=== PATIENT | male | born 1980 | race American Indian/Alaskan Native ===

== ENCOUNTER 2021-09-19 10:26 | Emergency (ER) | payer SELFPAY | END 2021-09-19 11:12 | disposition left against medical advice (07) | LOC: ED 10:26 | DX: R10.9 Unspecified abdominal pain (principal); Z53.21 Procedure and treatment not carried out due to patient leaving prior to being seen by health care provider ==

== ENCOUNTER 2021-10-06 12:41 | Emergency (ER) | payer MEDICARE ==
--- NOTE | 2021-10-06 14:29 | Emergency Department Report ---
<JERRI MONROE - Last Filed: 10/06/21 17:33> ED General Adult HPI - General Chief complaint: Nausea/Vomiting/Diarrhea Stated complaint: SPITTING UP BLOOD/3 MTS Time Seen by Provider: 10/06/21 13:53 Source: patient, family Mode of arrival: Ambulatory Limitations: No Limitations - History of Present Illness Initial comments: 41-year-old female with of developmental delay was brought to ED by family member with complaints of spitting up blood. Patient states that she is currently about 3 months . She reports that her last MC was in june and she did have a confirmed with the viable IUP done at [facility] on September 26. Patient states that she has been having issues with nausea and vomiting since being , but she was prescribed medications from [facility] which she has been taking. She states that she has remained nauseous and she has been doing a lot of spitting, but she has also been coughing since Friday and yesterday and today noticed that she was spitting up bright red blood. She was unable to tell if the blood was mixed with sputum. She denies vomiting blood. She denies any wheezing, chest pain, or SOB but she does admit to intermittent sore throat. She also c/o left sided intermittent sharp pain since last week but she reports no abnl vag bleeding, d/c or UTI symptoms. She denies fever or chills. She denies any apparent ill contacts. She has been vaccinated against COVID. She denies any recent travel. She reports no lower extremity swelling or calf pain. She reports a remote history of breast cancer back in for 5 years ago but she is currently in remission. She denies any history of PE or DVT. She is not on any anticoagulants or antiplatelet therapy. Her first OBGYN appt with Dr Blunt is October 15. She is . She denies any hx of illicit drug use or ETOH abuse. Complaint: SPITTING UP BLOOD/3 MTS -: days(s) - Related Data Previous Rx's Medication Instructions Recorded Last Taken Type Doxylamine Succinate/Vit B6 1 each PO QHS #30 10/06/21 Unknown Rx [Diclegis Dr 10-10 mg Tablet] Potassium Chloride [K-Dur] 20 meq PO BID #6 tab 10/06/21 Unknown Rx Allergies Allergy/AdvReac Type Severity Reaction Status Date / Time metoclopramide [From Reglan] Allergy Vomiting Verified 10/06/21 13:11 ED Review of Systems Comment: All other systems reviewed and negative Constitutional: denies: chills, fever Eyes: denies: eye pain, eye discharge, vision change ENT: throat pain. denies: ear pain, dental pain, hearing loss, epistaxis, congestion Respiratory: cough. denies: orthopnea, shortness of breath, SOB with exertion, SOB at rest, wheezing Cardiovascular: denies: chest pain, palpitations, dyspnea on exertion, edema, syncope, paroxysmal nocturnal dyspnea Gastrointestinal: abdominal pain, nausea. denies: vomiting, diarrhea, constipation, hematemesis, melena, hematochezia Musculoskeletal: denies: back pain, joint swelling, arthralgia Skin: denies: rash, lesions, change in color, change in hair/nails, pruritus Neurological: denies: headache, weakness, numbness, paresthesias, confusion, abnormal gait, vertigo Psychiatric: denies: anxiety, depression, auditory hallucinations, visual small llucinations, homicidal thoughts, suicidal thoughts Hematological/Lymphatic: denies: easy bleeding, swollen glands ED Past Medical Hx - Past Medical History Additional medical history: BREAST CA- REMISSION - Surgical History Past Surgical History?: No - Medications Home Medications: Home Medications Medication Instructions Recorded Confirmed Last Taken Type Doxylamine Succinate/Vit B6 1 each PO QHS #30 10/06/21 Unknown Rx [Diclegis Dr 10-10 mg Tablet] Potassium Chloride [K-Dur] 20 meq PO BID #6 tab 10/06/21 Unknown Rx ED Physical Exam - General Limitations: No Limitations General appearance: alert, in no apparent distress - Head Head exam: Present: atraumatic, normocephalic, normal inspection - Eye Eye exam: Present: normal appearance, PERRL, EOMI Pupils: Present: normal accommodation - ENT ENT exam: Present: mucous membranes moist - Expanded ENT Exam Expanded Mouth exam: Present: normal external inspection Teeth exam: Present: normal inspection Throat exam: Positive: tonsillar erythema. Negative: tonsillomegaly, tonsillar exudate, R peritonsillar mass, L peritonsillar mass - Neck Neck exam: Present: normal inspection, full ROM. Absent: meningismus - Respiratory Respiratory exam: Present: normal lung sounds bilaterally. Absent: respiratory distress, wheezes, rales, rhonchi - Cardiovascular Cardiovascular Exam: Present: regular rate, normal rhythm, normal heart sounds - GI/Abdominal GI/Abdominal exam: Present: soft, tenderness (mild LUQ and LLQ abd ttp ). Absent: distended, guarding - Rectal Rectal exam: Present: normal inspection, normal rectal tone, heme (-) stool, other (Aunt present in Room at time of rectal exam ). Absent: black stool, bloody stool, fecal impaction, hemorrhoids, mass, tenderness - Extremities Exam Extremities exam: Present: normal inspection, full ROM. Absent: pedal edema, c sid tenderness - Neurological Exam Neurological exam: Present: alert, oriented X3, CN II-XII intact, normal gait - Psychiatric Psychiatric exam: Present: normal affect, normal mood - Skin Skin exam: Present: intact ED Medical Decision Making - Lab Data Result diagrams: 10/06/21 15:35 10/06/21 15:35 - Radiology Data Radiology results: report reviewed Patient: MILI HERCULES MR#: [id number] : 1980 Acct:[id number] Age/Sex: 41 / F ADM Date: 10/06/21 Loc: ED Attending Dr: Ordering Physician: JERRI MONROE Date of Service: 10/06/21 Procedure(s): XR chest 1V ap Accession Number(s): [id number] cc: JERRI MONROE Fluoro Time In Minutes: CHEST 1 VIEW 10/06/2021 2:12 PM INDICATION / CLINICAL INFORMATION: hemoptysis. COMPARISON: None available. FINDINGS: SUPPORT DEVICES: None. HEART / MEDIASTINUM: No significant abnormality. LUNGS / PLEURA: No significant pulmonary or pleural abnormality. No pneumothorax. ADDITIONAL FINDINGS: No significant additional findings. IMPRESSION: 1. No acute findings. Signer Name: Eben Pelayo MD Signed: 10/06/2021 3:26 PM Workstation Name: [id number] Transcribed By: DT Dictated By: Leonard Pelayo MD Electronically Authenticated By: Leonard Pelayo MD Signed Date/Time: 10/06/21 1526 DD/ 1525 TD/TT: Patient: MILI HERCULES MR#: [id number] : 1980 Acct:[id number] Age/Sex: 41 / F ADM Date: 10/06/21 Loc: ED Attending Dr: Ordering Physician: JERRI MONROE Date of Service: 10/06/21 Procedure(s): US OB limited Accession Number(s): [id number] cc: JERRI MONROE ULTRASOUND OBSTETRIC INDICATION / CLINICAL INFORMATION: 3 mths preg; left sided abd pain. - Clinical Gestational Age (GA) in weeks, days: LMP is unknown TECHNIQUE: Transabdominal. COMPARISON: None available. FINDINGS: GESTATIONAL SAC: Well-defined oval shape and intrauterine in location. YOLK SAC: No significant abnormality. EMBRYO/FETUS: No significant abnormality. - [place]-Rump Length = 3.1 cm = 10, 0 weeks, days - Heart Rate, beats per minute (if present) = 176 ADNEXA: Right ovary well visualized. No adnexal mass or cyst. FREE FLUID: None. ADDITIONAL FINDINGS: None. IMPRESSION: 1. Single, living intrauterine with estimated sonographic age of 10, 0 weeks, days. Signer Name: Eben Pelayo MD Signed: 10/06/2021 5:18 PM Workstation Name: [id number] Transcribed By: DT Dictated By: Leonard Pelayo MD Electronically Authenticated By: Leonard Pelayo MD Signed Date/Time: 10/06/211717 DD/ 15 TD/TT: - Medical Decision Making 1732 ; The patient's care has been transferred to and accepted by[Dr Washburn]. We discussed: The patient's chief complaints; labs and imaging that have been completed and those that are still pending; procedures that have been completed; any treatment provided and the patient's response to treatment; any significant change in condition; the treatment plan prior to the transfer of care. The accepting provider will follow up on all pending labs and imaging and make any necessary changes to the current impression and/or treatment plan. The accepting physician/midlevel is now responsible for the patient's care and final disposition. ED Disposition Clinical Impression: Dehydration, Nausea/vomiting in , Bronchitis Disposition: 01 HOME / SELF CARE / HOMELESS Is pt being admited?: No Does the pt Need Aspirin: No Condition: Stable Instructions: Hyperemesis Gravidarum, Hypokalemia, Dehydration, Adult, Easy-to- Read, Acute Bronchitis, Adult, Chronic Bronchitis (ED) Additional Instructions: I recommend that you try to drink lots of fluids most importantly water, or even electrolyte water to help with hydration. Take the Diclegis as prescribed and at night to help with nausea and vomiting. It can make you sleepy so make sure you take it at night. Recommend that you try to include catracho products in your diet as this will also help with nausea and vomiting. Potassium was mildly decreased today at 3.2 and so you will be given 3-day supply of oral potassium, but you can eat foods such as avocado, watermelon, and bananas to help increase your potassium level. You can suck on [id number] lozenges to help control your cough. I do recommend also getting a COVID-19 test at an outpatient clinic or urgent care to rule this out as a cause of your cough. Take Tylenol only as needed for pain. Recommend that you start vitamins from hypx-dps-opxesif. You can do the vitamin Gummies which will be easier to tolerate currently. Most importantly follow-up with the AQUATICS DIRECTOR as scheduled October 15. Return to the ER if your symptoms worsens or changes in any way. Prescriptions: Doxylamine Succinate/Vit B6 [Diclegis Dr 10-10 mg Tablet] 1 each PO QHS #30 Potassium Chloride [K-Dur] 20 meq PO BID #6 tab Referrals: PRIMARY CAREMD [Referring] - 3-5 Days Forms: Work/School Release Form(ED) Time of Disposition: 17:31 <CEFERINO WASHBURN - Last Filed: 10/06/21 19:12> ED Review of Systems ROS: Stated complaint: SPITTING UP BLOOD/3 MTS Other details as noted in HPI ED Course Vital Signs 10/06/21 13:16 Temperature 98.2 F Pulse Rate 84 Respiratory 20 Rate Blood Pressure 120/58 O2 Sat by Pulse 100 Oximetry - Reevaluation(s) Reevaluation #1: 10/06/21 19:11 Patient reevaluated multiple times by myself. No active vomiting. X-ray of the chest and obstetrics ultrasound reviewed and appreciated. Urinalysis is grossly contaminated with epithelial cells. Patient did not endorse any irritative or obstructive urinary symptoms to myself with the physician reference library assistant. Discharged with outpatient follow-up. ED Medical Decision Making - Lab Data Result diagrams: 10/06/21 15:35 10/06/21 15:35 Vital Signs 10/06/21 13:16 Temperature 98.2 F Pulse Rate 84 Respiratory 20 Rate Blood Pressure 120/58 O2 Sat by Pulse 100 Oximetry Lab Results 10/06/21 10/06/21 10/06/21 Range/Units 15:35 15:35 15:35 WBC 4.9 (4.5-11.0) K/mm3 RBC 4.43 (3.65-5.03) M/mm3 Hgb 13.2 (10.1-14.3) gm/dl Hct 39.8 (30.3-42.9) % MCV 90 (79-97) fl MCH 30 (28-32) pg MCHC 33 (30-34) % RDW 12.3 L (13.2-15.2) % Plt Count 350 (140-440) K/mm3 Lymph % (Auto) 29.6 (13.4-35.0) % [place] % (Auto) 15.8 H (0.0-7.3) % Eos % (Auto) 0.2 (0.0-4.3) % Baso % (Auto) 0.7 (0.0-1.8) % Lymph # (Auto) 1.4 (1.2-5.4) K/mm3 [place] # (Auto) 0.8 (0.0-0.8) K/mm3 Eos # (Auto) 0.0 (0.0-0.4) K/mm3 Baso # (Auto) 0.0 (0.0-0.1) K/mm3 Seg Neutrophils % 53.7 (40.0-70.0) % Seg Neutrophils # 2.6 (1.8-7.7) K/mm3 Sodium 129 L (137-145) mmol/L Potassium 3.2 L (3.6-5.0) mmol/L Chloride 92.7 L (98-107) mmol/L Carbon Dioxide 20 L (22-30) mmol/L Anion Gap 20 mmol/L BUN 23 H (7-17) mg/dL Creatinine 0.6 (0.6-1.2) mg/dL Estimated GFR > 60 ml/min BUN/Creatinine Ratio 38 % Glucose 81 (65-100) mg/dL Calcium 10.3 H (8.4-10.2) mg/dL Magnesium (1.7-2.3) mg/dL Total Bilirubin 0.60 (0.1-1.2) mg/dL AST 23 (5-40) units/L ALT 20 (7-56) units/L Alkaline Phosphatase 69 (35-129) units/L Total Protein 8.1 (6.3-8.2) g/dL Albumin 4.3 (3.9-5) g/dL Albumin/Globulin Ratio 1.1 % Lipase (13-60) units/L HCG, Quant 720351 H (0-4) mIU/mL Urine Color (Yellow) Urine Turbidity (Clear) Urine pH (5.0-7.0) Ur Specific [place] (1.003-1.030) Urine Protein (Negative) mg/dL Urine Glucose (UA) (Negative) mg/dL Urine Ketones (Negative) mg/dL Urine Blood (Negative) Urine Nitrite (Negative) Urine Bilirubin (Negative) Urine Urobilinogen (<2.0) mg/dL Ur Leukocyte Esterase (Negative) Urine WBC (Auto) (0.0-6.0) /HPF Urine RBC (Auto) (0.0-6.0) /HPF U Epithel Cells (Auto) (0-13.0) /HPF Urine Bacteria (Auto) (Negative) /HPF Urine WBC Clumps /HPF Urine Mucus /HPF Urine Yeast (Budding) /HPF Group A Strep Rapid (Negative) 10/06/21 10/06/21 10/06/21 Range/Units 15:35 15:35 18:11 WBC (4.5-11.0) K/mm3 RBC (3.65-5.03) M/mm3 Hgb (10.1-14.3) gm/dl Hct (30.3-42.9) % MCV (79-97) fl MCH (28-32) pg MCHC (30-34) % RDW (13.2-15.2) % Plt Count (140-440) K/mm3 Lymph % (Auto) (13.4-35.0) % [place] % (Auto) (0.0-7.3) % Eos % (Auto) (0.0-4.3) % Baso % (Auto) (0.0-1.8) % Lymph # (Auto) (1.2-5.4) K/mm3 [place] # (Auto) (0.0-0.8) K/mm3 Eos # (Auto) (0.0-0.4) K/mm3 Baso # (Auto) (0.0-0.1) K/mm3 Seg Neutrophils % (40.0-70.0) % Seg Neutrophils # (1.8-7.7) K/mm3 Sodium (137-145) mmol/L Potassium (3.6-5.0) mmol/L Chloride (98-107) mmol/L Carbon Dioxide (22-30) mmol/L Anion Gap mmol/L BUN (7-17) mg/dL Creatinine (0.6-1.2) mg/dL Estimated GFR ml/min BUN/Creatinine Ratio % Glucose (65-100) mg/dL Calcium (8.4-10.2) mg/dL Magnesium 1.90 (1.7-2.3) mg/dL Total Bilirubin (0.1-1.2) mg/dL AST (5-40) units/L ALT (7-56) units/L Alkaline Phosphatase (35-129) units/L Total Protein (6.3-8.2) g/dL Albumin (3.9-5) g/dL Albumin/Globulin Ratio % Lipase 15 (13-60) units/L HCG, Quant (0-4) mIU/mL Urine Color Priscila (Yellow) Urine Turbidity Cloudy (Clear) Urine pH 5.0 (5.0-7.0) Ur Specific [place] 1.027 (1.003-1.030) Urine Protein 100 mg/dl (Negative) mg/dL Urine Glucose (UA) Neg (Negative) mg/dL Urine Ketones 80 (Negative) mg/dL Urine Blood Neg (Negative) Urine Nitrite Neg (Negative) Urine Bilirubin Neg (Negative) Urine Urobilinogen 4.0 (<2.0) mg/dL Ur Leukocyte Esterase Lg (Negative) Urine WBC (Auto) 47.0 H (0.0-6.0) /HPF Urine RBC (Auto) 3.0 (0.0-6.0) /HPF U Epithel Cells (Auto) 55.0 H (0-13.0) /HPF Urine Bacteria (Auto) 2+ (Negative) /HPF Urine WBC Clumps 2+ /HPF Urine Mucus 3+ /HPF Urine Yeast (Budding) 1+ /HPF Group A Strep Rapid (Negative) 10/06/21 Range/Units Unknown WBC (4.5-11.0) K/mm3 RBC (3.65-5.03) M/mm3 Hgb (10.1-14.3) gm/dl Hct (30.3-42.9) % MCV (79-97) fl MCH (28-32) pg MCHC (30-34) % RDW (13.2-15.2) % Plt Count (140-440) K/mm3 Lymph % (Auto) (13.4-35.0) % [place] % (Auto) (0.0-7.3) % Eos % (Auto) (0.0-4.3) % Baso % (Auto) (0.0-1.8) % Lymph # (Auto) (1.2-5.4) K/mm3 [place] # (Auto) (0.0-0.8) K/mm3 Eos # (Auto) (0.0-0.4) K/mm3 Baso # (Auto) (0.0-0.1) K/mm3 Seg Neutrophils % (40.0-70.0) % Seg Neutrophils # (1.8-7.7) K/mm3 Sodium (137-145) mmol/L Potassium (3.6-5.0) mmol/L Chloride (98-107) mmol/L Carbon Dioxide (22-30) mmol/L Anion Gap mmol/L BUN (7-17) mg/dL Creatinine (0.6-1.2) mg/dL Estimated GFR ml/min BUN/Creatinine Ratio % Glucose (65-100) mg/dL Calcium (8.4-10.2) mg/dL Magnesium (1.7-2.3) mg/dL Total Bilirubin (0.1-1.2) mg/dL AST (5-40) units/L ALT (7-56) units/L Alkaline Phosphatase (35-129) units/L Total Protein (6.3-8.2) g/dL Albumin (3.9-5) g/dL Albumin/Globulin Ratio % Lipase (13-60) units/L HCG, Quant (0-4) mIU/mL Urine Color (Yellow) Urine Turbidity (Clear) Urine pH (5.0-7.0) Ur Specific [place] (1.003-1.030) Urine Protein (Negative) mg/dL Urine Glucose (UA) (Negative) mg/dL Urine Ketones (Negative) mg/dL Urine Blood (Negative) Urine Nitrite (Negative) Urine Bilirubin (Negative) Urine Urobilinogen (<2.0) mg/dL Ur Leukocyte Esterase (Negative) Urine WBC (Auto) (0.0-6.0) /HPF Urine RBC (Auto) (0.0-6.0) /HPF U Epithel Cells (Auto) (0-13.0) /HPF Urine Bacteria (Auto) (Negative) /HPF Urine WBC Clumps /HPF Urine Mucus /HPF Urine Yeast (Budding) /HPF Group A Strep Rapid Negative (Negative) - Radiology Data Radiology results: report reviewed, image reviewed Critical care attestation.: If time is entered above; I have spent that time in minutes in the direct care of this critically ill patient, excluding procedure time. ED Disposition Is pt being admited?: No Does the pt Need Aspirin: No
[2021-10-06] MEDS ORDERED: ONDANSETRON 4 MG/2 ML INJ IV ONE ×2 (14:37→15:00)
[2021-10-06] MEDS ORDERED: SODIUM CHLORIDE 0.9% 1000 ML 1,000 ML IV ONE (14:37)
--- NOTE | 2021-10-06 15:30 | XRay Report ---
CHEST 1 VIEW 10/06/2021 2:12 PM INDICATION / CLINICAL INFORMATION: hemoptysis. COMPARISON: None available. FINDINGS: SUPPORT DEVICES: None. HEART / MEDIASTINUM: No significant abnormality. LUNGS / PLEURA: No significant pulmonary or pleural abnormality. No pneumothorax. ADDITIONAL FINDINGS: No significant additional findings. IMPRESSION: 1. No acute findings. Signer Name: Eben Pelayo MD Signed: 10/06/2021 3:26 PM Workstation Name: [id number]
--- NOTE | 2021-10-06 15:57 | Event Note ---
Date of service: 10/06/21 Face to Face: For this encounter I have reviewed the PA/LABORER CEMENT GUN [employer]ACING documentation, treatment plan, medical decision making, and I had face to face time with this patient. Patient is a 41-year-old female who is developmentally delayed, whose mother serves as her decision-maker. She is , and may be following up with Dr. Barraza of VIDEO PRESENTATION OPERATOR, and COVID-19 vaccinated. She is accompanied by her aunt who provides some of the history of present illness. Patient presents to the ER today with a complaint of coughing up blood or vomiting of blood. This is not witnessed. The patient endorses lower abdominal cramping without urinary symptoms. In the emergency room, her throat exam is unremarkable, head and neck exam is unremarkable, and she is not in any acute respiratory distress. Laboratory studies show appropriate hemoglobin and hematocrit. She does have evidence of dehydration, manifest by probable hypovolemic hyponatremia. Potassium may be repleted orally. Magnesium levels pending. Urinalysis is pending. Obstetrics ultrasound is pending. Chest x-ray is clear. The patient is not currently tachycardic, tachypneic or hypoxic, she is not actively vomiting or experiencing hemoptysis, do not suspect a pulmonary embolism at this time. Physician assistant counsel to perform rectal examination to assess for lower GI bleed. Presuming no evidence of lower GI bleed, and unremarkable ultrasound,/urinalysis, we would consider this patient suitable for discharge as an outpatient. May be discharged with Diclegis, vitamins, potassium supplementation, as needed catracho, and outpatient follow-up with VIDEO PRESENTATION OPERATOR. This was discussed with the patient's family member who articulated understanding. Mild hypokalemia reviewed and appreciated, likely secondary to diet. Patient may increase consumption of banana, potatoes and avocado. 10/06/21 13:16 Temperature 98.2 F Pulse Rate 84 Respiratory 20 Rate Blood Pressure 120/58 O2 Sat by Pulse 100 Oximetry Lab Results 10/06/21 10/06/21 10/06/21 Range/Units 15:35 15:35 15:35 WBC 4.9 (4.5-11.0) K/mm3 RBC 4.43 (3.65-5.03) M/mm3 Hgb 13.2 (10.1-14.3) gm/dl Hct 39.8 (30.3-42.9) % MCV 90 (79-97) fl MCH 30 (28-32) pg MCHC 33 (30-34) % RDW 12.3 L (13.2-15.2) % Plt Count 350 (140-440) K/mm3 Lymph % (Auto) 29.6 (13.4-35.0) % [place] % (Auto) 15.8 H (0.0-7.3) % Eos % (Auto) 0.2 (0.0-4.3) % Baso % (Auto) 0.7 (0.0-1.8) % Lymph # (Auto) 1.4 (1.2-5.4) K/mm3 [place] # (Auto) 0.8 (0.0-0.8) K/mm3 Eos # (Auto) 0.0 (0.0-0.4) K/mm3 Baso # (Auto) 0.0 (0.0-0.1) K/mm3 Seg Neutrophils % 53.7 (40.0-70.0) % Seg Neutrophils # 2.6 (1.8-7.7) K/mm3 Sodium 129 L (137-145) mmol/L Potassium 3.2 L (3.6-5.0) mmol/L Chloride 92.7 L (98-107) mmol/L Carbon Dioxide 20 L (22-30) mmol/L Anion Gap 20 mmol/L BUN 23 H (7-17) mg/dL Creatinine 0.6 (0.6-1.2) mg/dL Estimated GFR > 60 ml/min BUN/Creatinine Ratio 38 % Glucose 81 (65-100) mg/dL Calcium 10.3 H (8.4-10.2) mg/dL Total Bilirubin 0.60 (0.1-1.2) mg/dL AST 23 (5-40) units/L ALT 20 (7-56) units/L Alkaline Phosphatase 69 (35-129) units/L Total Protein 8.1 (6.3-8.2) g/dL Albumin 4.3 (3.9-5) g/dL Albumin/Globulin Ratio 1.1 % Lipase 15 (13-60) units/L Group A Strep Rapid (Negative) 10/06/21 Range/Units Unknown WBC (4.5-11.0) K/mm3 RBC (3.65-5.03) M/mm3 Hgb (10.1-14.3) gm/dl Hct (30.3-42.9) % MCV (79-97) fl MCH (28-32) pg MCHC (30-34) % RDW (13.2-15.2) % Plt Count (140-440) K/mm3 Lymph % (Auto) (13.4-35.0) % [place] % (Auto) (0.0-7.3) % Eos % (Auto) (0.0-4.3) % Baso % (Auto) (0.0-1.8) % Lymph # (Auto) (1.2-5.4) K/mm3 [place] # (Auto) (0.0-0.8) K/mm3 Eos # (Auto) (0.0-0.4) K/mm3 Baso # (Auto) (0.0-0.1) K/mm3 Seg Neutrophils % (40.0-70.0) % Seg Neutrophils # (1.8-7.7) K/mm3 Sodium (137-145) mmol/L Potassium (3.6-5.0) mmol/L Chloride (98-107) mmol/L Carbon Dioxide (22-30) mmol/L Anion Gap mmol/L BUN (7-17) mg/dL Creatinine (0.6-1.2) mg/dL Estimated GFR ml/min BUN/Creatinine Ratio % Glucose (65-100) mg/dL Calcium (8.4-10.2) mg/dL Total Bilirubin (0.1-1.2) mg/dL AST (5-40) units/L ALT (7-56) units/L Alkaline Phosphatase (35-129) units/L Total Protein (6.3-8.2) g/dL Albumin (3.9-5) g/dL Albumin/Globulin Ratio % Lipase (13-60) units/L Group A Strep Rapid Negative (Negative) CHEST 1 VIEW 10/06/2021 2:12 PM INDICATION / CLINICAL INFORMATION: hemoptysis. COMPARISON: None available. FINDINGS: SUPPORT DEVICES: None. HEART / MEDIASTINUM: No significant abnormality. LUNGS / PLEURA: No significant pulmonary or pleural abnormality. No pneumothorax. ADDITIONAL FINDINGS: No significant additional findings. IMPRESSION: 1. No acute findings. Signer Name: Eben Pelayo MD Signed: 10/06/2021 2:26 PM Workstation Name: [id number] [facility] [address] [place] [address] Ultrasound Report Signed Patient: MILI HERCULES MR#: [id number] : 1980 Acct:[id number] Age/Sex: 41 / F ADM Date: 10/06/21 Loc: ED Attending Dr: Ordering Physician: JERRI MONROE Date of Service: 10/06/21 Procedure(s): US OB limited Accession Number(s): [id number] cc: JERRI MONROE ULTRASOUND OBSTETRIC INDICATION / CLINICAL INFORMATION: 3 mths preg; left sided abd pain. - Clinical Gestational Age (GA) in weeks, days: LMP is unknown TECHNIQUE: Transabdominal. COMPARISON: None available. FINDINGS: GESTATIONAL SAC: Well- defined oval shape and intrauterine in location. YOLK SAC: No significant abnormality. EMBRYO/FETUS: No significant abnormality. - [place]-Rump Length = 3.1 cm = 10, 0 weeks, days - Heart Rate, beats per minute (if present) = 176 ADNEXA: Right ovary well visualized. No adnexal mass or cyst. FREE FLUID: None. ADDITIONAL FINDINGS: None. IMPRESSION: 1. Single, living intrauterine with estimated sonographic age of 10, 0 weeks, days. Signer Name: Eben Pelayo MD Signed: 10/06/2021 5:18 PM Workstation Name: [id number] Transcribed By: DT Dictated By: Leonard Pelayo MD Electronically Authenticated By: Leonard Pelayo MD Signed Date/Time: 10/06/21 1718 DD/ 1716
[2021-10-06] MEDS ORDERED: D5W/0.45% NACL 1,000 ML IV SCH (16:00)
[2021-10-06 16:02] LABS: Basophils % (Auto) 0.7 % (0.0-1.8); Eosinophils % (Auto) 0.2 % (0.0-4.3); Hematocrit 39.8 % (30.3-42.9); Hemoglobin 13.2 gm/dl (10.1-14.3); Lymphocytes # (Auto) 1.4 K/mm3 (1.2-5.4); Lymphocytes % (Auto) 29.6 % (13.4-35.0); Mean Corpuscular HGB Conc 33 % (30-34); Mean Corpuscular Volume 90 fl (79-97); Monocytes # (Auto) 0.8 K/mm3 (0.0-0.8); Monocytes % (Auto) 15.8 % (0.0-7.3); Platelet Count 350 K/mm3 (140-440); Red Blood Count 4.43 M/mm3 (3.65-5.03); Red Cell Distribution Width 12.3 % (13.2-15.2)
[2021-10-06 16:27] LABS: Alanine Aminotransferase 20 units/L (7-56); Albumin 4.3 g/dL (3.9-5); Blood Urea Nitrogen 23 mg/dL (7-17); Calcium 10.3 mg/dL (8.4-10.2); Hemolysis Index 57
[2021-10-06 16:43] LABS: BUN/Creatinine Ratio 38
[2021-10-06] MEDS ORDERED: POTASSIUM CHLORIDE ER 20 MEQ TAB PO ONE (17:04)
--- NOTE | 2021-10-06 17:22 | Ultrasound Report ---
ULTRASOUND OBSTETRIC INDICATION / CLINICAL INFORMATION: 3 mths preg; left sided abd pain. - Clinical Gestational Age (GA) in weeks, days: LMP is unknown TECHNIQUE: Transabdominal. COMPARISON: None available. FINDINGS: GESTATIONAL SAC: Well-defined oval shape and intrauterine in location. YOLK SAC: No significant abnormality. EMBRYO/FETUS: No significant abnormality. - [place]-Rump Length = 3.1 cm = 10, 0 weeks, days - Heart Rate, beats per minute (if present) = 176 ADNEXA: Right ovary well visualized. No adnexal mass or cyst. FREE FLUID: None. ADDITIONAL FINDINGS: None. IMPRESSION: 1. Single, living intrauterine with estimated sonographic age of 10, 0 weeks, days. Signer Name: Eben Pelayo MD Signed: 10/06/2021 5:18 PM Workstation Name: [id number]
[2021-10-06 18:51] LABS: Bacteria,Urine 2+ /HPF (Negative); Bilirubin,Urine NEG (Negative); Blood,Urine NEG (Negative); Color,Urine Amber (Yellow); Mucus,Urine 3+ /HPF
[2021-10-06 19:30] VITALS: BP 100/62
== END 2021-10-06 19:39 | disposition home or self-care (01) ==
LOC: EDSEX → ED 12:41
DX: O26.891 Other specified pregnancy related conditions, first trimester (principal); E86.0 Dehydration; O99.511 Diseases of the respiratory system complicating pregnancy, first trimester; J40 Bronchitis, not specified as acute or chronic; O21.9 Vomiting of pregnancy, unspecified; Z88.8 Allergy status to other drugs, medicaments and biological substances; Z79.899 Other long term (current) drug therapy; Z3A.10 10 weeks gestation of pregnancy
CPT/HCPCS: 36415; 71045; 76815; 80053; 81001; 83690; 83735; 84702; 85025; 87086; 87116; 87430; 96374; 99284; J2405; 76801